=== PATIENT | male | born 1950 | race Caucasian/White ===

== ENCOUNTER 2022-09-23 14:56 | Outpatient (REF) | payer OTHER, MEDICAID, SELFPAY ==
--- NOTE | ~2022-09-23 | XR_ITS ---
EXAMINATION: XR KNEE AP STANDING XR KNEE, RIGHT CLINICAL INFORMATION: Pain in unspecified knee COMPARISON: June 29, 2022. TECHNIQUE: AP bilateral standing view of the knees was obtained. 2 additional views of the right knee. FINDINGS: The patient is status post bilateral total knee arthroplasties. Partially imaged metallic fixation plate and screws at the mid diaphysis of the left tibia. There is no evidence of hardware fracture or loosening. No bony fracture or dislocation is seen. No lytic or sclerotic bony lesion is identified. No definite effusion identified as such. Vascular calcification. XR/XR knee standing BI IMPRESSION: No acute finding.
--- NOTE | ~2022-09-23 | XR_ITS ---
EXAMINATION: XR KNEE AP STANDING XR KNEE, RIGHT CLINICAL INFORMATION: Pain in unspecified knee COMPARISON: June 29, 2022. TECHNIQUE: AP bilateral standing view of the knees was obtained. 2 additional views of the right knee. FINDINGS: The patient is status post bilateral total knee arthroplasties. Partially imaged metallic fixation plate and screws at the mid diaphysis of the left tibia. There is no evidence of hardware fracture or loosening. No bony fracture or dislocation is seen. No lytic or sclerotic bony lesion is identified. No definite effusion identified as such. Vascular calcification. XR/XR knee RT 2V IMPRESSION: No acute finding.
== END 2022-09-23 14:57 | disposition home or self-care (01) ==
LOC: HO.HOSX 14:56
PROVIDERS: Visit Provider Orthopaedic Surgery
DX: T84.84XA Pain due to internal orthopedic prosthetic devices, implants and grafts, initial encounter (principal); Z96.653 Presence of artificial knee joint, bilateral
CPT/HCPCS: 73560; 73565; 99202

== ENCOUNTER → 2022-10-08 10:47 | Outpatient (REF) | payer OTHER, MEDICAID, SELFPAY ==
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
== END ==
LOC: HO.NUCMED 10:47
PROVIDERS: PCP Internal Medicine; Visit Provider Orthopaedic Surgery
DX: Z96.653 Presence of artificial knee joint, bilateral (principal)
CPT/HCPCS: 78315; A9503

== ENCOUNTER → 2022-10-29 10:44 | Outpatient (BNVA) | payer OTHER, MEDICAID, SELFPAY | PROVIDERS: PCP Internal Medicine; Visit Provider Orthopaedic Surgery | DX: T84.84XA Pain due to internal orthopedic prosthetic devices, implants and grafts, initial encounter (principal); M25.561 Pain in right knee; Z96.653 Presence of artificial knee joint, bilateral | CPT/HCPCS: 99212 ==

== ENCOUNTER → 2022-12-13 08:43 | Outpatient (BNVA) | payer OTHER, MEDICAID, SELFPAY | PROVIDERS: PCP Internal Medicine; Visit Provider Anesthesiology | DX: G40.909 Epilepsy, unspecified, not intractable, without status epilepticus (principal); G89.4 Chronic pain syndrome; Z96.653 Presence of artificial knee joint, bilateral | CPT/HCPCS: 99202 ==

== ENCOUNTER 2023-05-10 06:00 | Outpatient (REF) | payer OTHER, MEDICAID, SELFPAY ==
--- NOTE | ~2023-05-10 | FL_ITS ---
EXAMINATION: XR FLUOROSCOPY WITH IMAGES CLINICAL INFORMATION: Chronic pain syndrome. Right knee injection. COMPARISON: None available. TECHNIQUE: Fluoroscopy Supervised By: Dr. Rohith Ramirez. Fluoroscopy Time: 0.1 minutes. Cumulative Dose: 4.36 mGy. DAP: 0.0757 mGy-m2. Images: 4. FINDINGS: There is a right knee replacement. Images demonstrate needle placement for geniculate nerve block. FL/FL guidance in treatment room IMPRESSION: Fluoroscopy guidance for pain management procedure.
== END 2023-05-10 06:01 | disposition home or self-care (01) ==
LOC: CF 06:00
PROVIDERS: Visit Provider Anesthesiology
DX: G89.4 Chronic pain syndrome (principal); G40.909 Epilepsy, unspecified, not intractable, without status epilepticus; Z96.653 Presence of artificial knee joint, bilateral
CPT/HCPCS: J0690

== ENCOUNTER 2023-05-10 09:52 | Outpatient (AMB) | payer OTHER, MEDICAID, SELFPAY ==
[2023-05-10 09:57] VITALS: BP 98/60; PULSE 68; RESP 14; O2SAT 97; BMI 26.3
--- NOTE | 2023-05-10 09:57 | MHC.OFFVIS ---
Intake Vital Signs 05/10/23 09:57 05/10/23 11:58 Height 5 ft 7 in 5 ft 7 in Weight 168 lb 168 lb BMI 26.3 26.3 BP 98/60 118/62 Blood Pressure Location Rt brachial Rt brachial Position Sitting Sitting Respiration 14 14 Pulse 68 56 Pulse Source Pulse Oximeter Pulse Oximeter Pulse Oximetry (%) 97 96 Oxygen Delivery Method Room Air Room Air Comment pre-op Post-op Intake Visit Reasons: R DX GNB/LOCAL Allergies No Known Allergies Allergy (Verified 05/10/23 09:57) PFSH Medical History Hx of aneurysm Surgical History History of bilateral knee replacement Social History Patient Tobacco Use Status: Never used Tobacco Current occupational status: retired 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 His bone scan was unremarkable with no evidence of loosening or infection. He continues to have pain and difficulty with ambulation, and uses an assistive cane. He was examined by Dr. Israel orthopedic surgeon and there were no indications for patient to have a surgery no loosening of the joint and no signs of the infection. I offered this patient to treat his pain right diagnostic genicular nerve block. I will see him for the appointment after the genicular nerve block on the right will be completed. (2) Chronic pain syndrome: Code(s): G89.4 - Chronic pain syndrome (3) Seizure disorder: Code(s): G40.909 - Epilepsy, unspecified, not intractable, without status epilepticus Plan Right diagnostic genicular nerve block. 20 minutes before the procedure the patient recieved 2 g of cefasoline IV Informed consent was explained to the patient. All questions were explained and answered. The patient was taken inside the operating room. The patient was positioned supine on operating table with her right leg elevated on a gel bin. Time-out was performed delineating correct site, side, the nature of the procedure, patient's allergy, preoperative antibiotic if needed. All operating room staff was participating in OR time-out procedure. C-arm was brought over the operating field and picture of the left knee was demonstrated on the screen. Anterolateral and anteromedial surfaces of the knee as well as lower leg and the lower thigh were prepped with chloroprep and draped with utility towels. The point of interest were delineated for: FOR: superior lateral genicular nerve (branch of lateral femoral cutaneous nerve) as the connection of the metaphysis of theright femur with corresponding diaphysis on the lateral silhouette of the femur distal bone, For superior medial genicular nerve (suprapatellar saphenous nerve) the point of interest was delineated is the connection of metaphysis of right femur with corresponding diaphysis on the medial silhouette on the femoral distal bone. For inferior medial genicular nerve (infrapatellar saphenous nerve) the point of interest was delineated as connection of metaphysis of the proximal tibia on the medial side with corresponding diaphysis of the same bone. The projections of the points of interest on anterior surface of the right knee was injected with small amount of lidocaine 2% 1-to 2 ml. After that to needles 22 gauge 3-1/2 inch long were driven to were the point of interest in tunnel vision fashion. When the needle gently contacted the bones the C arm view was turned lateral , care was taken to superimpose condyles of the knee. With condyles superimpsed the needles were adjusted the way the tips of the needle positioned at the middle of the shaft of the bone. After that injection of ropivacaine o.5% 1 to 1.5 mls was performed at each needle location. the needles were removed and bandaids were applied. the patient tolerated the procedure very well. Orders: Orders FL guidance in treatment room Today G89.4 - Chronic pain syndrome, Z96.653 - Presence of artificial knee joint, bilateral Coding Level of Care Code Procedure Only Diagnoses Status post bilateral knee replacements Z96.653 Chronic pain syndrome G89.4 Seizure disorder G40.901
[2023-05-10 11:58] VITALS: BP 118/62; PULSE 56; RESP 14; O2SAT 96; BMI 26.3
== END 2023-05-10 11:23 | disposition home or self-care (01) ==
PROVIDERS: PCP Internal Medicine; Visit Provider Anesthesiology
DX: M25.561 Pain in right knee (principal); Z96.653 Presence of artificial knee joint, bilateral; G89.4 Chronic pain syndrome; G40.909 Epilepsy, unspecified, not intractable, without status epilepticus
CPT/HCPCS: 64454

== ENCOUNTER 2023-05-12 09:43 | Outpatient (AMB) | payer OTHER, MEDICAID, SELFPAY ==
--- NOTE | 2023-05-12 09:47 | A.OFFVIS_ITS ---
Intake Vital Signs 05/12/23 09:58 Height 5 ft 7 in Weight 162 lb BMI 25.4 BP 138/74 Blood Pressure Location Lt brachial Position Sitting Respiration 18 Pulse 65 Pulse Source Pulse Oximeter Pulse Oximetry (%) 98 Oxygen Delivery Method Room Air Intake Visit Reasons: R CELENA VALLESB/LOCAL 04/12/23 Intake Note: patient comes in for post-op appointment. Allergies No Known Allergies Allergy (Verified 05/12/23 10:00) HPI HPI Comments History of Present Illness Details Kieran is back in my office after the injection of the right genicular nerves on 04/12/2023. He reported before the procedure his pain was 7/10. Immediately after the procedure pain went down to 6/10. It remains so until 3 hours after the procedure when he started to feel pain reduction initially 5/10 and 4 hours 3/10 at 05:00 hours toe out of 10 and it 6 hours 0/10 he currently experiences no pain in the knee for 2 days after the procedure. He reports excellent mobility ability to perform things in his household he forgot he was capable of doing. We discussed possibility of treatment of his pain with neuromodulation versus radiofrequency ablation. The patient is very negative about any implantable devices. He wants to go for radiofrequency ablation. He can be scheduled for radiofrequency ablation however we need to make sure that his pain returns before with schedule this procedure. I will schedule him for cooled RFA genicular nerves right knee, he will have a chance to cancel the case if his pain remains negligent at the time of the procedure. Prior: History of - complains on severe pain tenderness on palpation and swelling on the lateral side of the right knee.? He reported that he had total knee replacement long time ago at that knee.? He reported that the swelling and pain started recently in that area.? Before that the pain did not bother him.? Reports that he cannot sleep normally cannot do activities of daily living but he can take care of it himself and he can not function normally.? He is retired individual.? He is self mobile.? He reports that pain is worse in the evening and this severe in the morning.? He reports that pain is aggravated after prolonged walking or physical activities.? He reports short range of motion in the right knee.? He had x-ray and the bone scan performed in [facility] and results of the x-rays dictated as below. His past medical history significant for seizure disorder and high blood pressure. His past surgical history significant for total knee replacement bilateral neck surgery and back surgery. 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 Review of Systems Const All systems reviewed & are unremarkable except as noted in HPI and below Physical Exam Vital Signs: Last Vital Signs Pulse 65 05/12/23 09:58 Resp 18 05/12/23 09:58 BP 138/74 05/12/23 09:58 Pulse Ox 98 05/12/23 09:58 Oxygen Delivery Method Room Air 05/12/23 09:58 BMI result Body Mass Index 25.4 Const General: no acute distress and alert Orientation/consciousness: patient oriented x3 Resp Effort & Inspection: normal respiratory effort, able to speak in complete sentences, normal respiratory pattern, no audible wheezes, no cough and respiratory effort not decreased Cardio Jugular venous distension: no JVD GI Inspection: Yes normal to inspection Neuro General: patient oriented x3 Extrem Other: Right Knee: Full passive ROM, active range of motion is limited on the right to 70 degrees due to pain Well-healed incision No effusion TTP over the undersurface of lateral patella. Assessment & Plan Assessment & Plan (1) Status post bilateral knee replacements: Code(s): Z96.653 - Presence of artificial knee joint, bilateral Plan: This is a 72 year old man with a Hx of bilateral TKA's ~15-18 years ago, and several months of ongoing right knee pain & swelling. His bone scan was unremarkable with no evidence of loosening or infection. He continues to have pain and difficulty with ambulation, and uses an assistive cane. He was examined by Dr. Israel orthopedic surgeon and there were no indications for patient to have a surgery no loosening of the joint and no signs of the infection. Genicular nerve block resulted in excellent pain relief. He still enjoys pain-free right knee. However the pain will come back. He has negative about neuromodulation. He is very eager to go for radiofrequency ablation although the limitations of the procedure were explained to the patient. Possibility of pain in knee returning 1 year after the procedure is high. The chances of pain relief after 2nd procedure would be only 50/ 50 at the best. I would not mind to try. I will schedule him for RFA of the right genicular nerves accordingly. (2) Chronic pain syndrome: Code(s): G89.4 - Chronic pain syndrome (3) Seizure disorder: Code(s): G40.909 - Epilepsy, unspecified, not intractable, without status epilepticus (4) Right knee pain: Code(s): M25.561 - Pain in right knee Coding Level of Care Code Est Pt Level 4 (36689) Diagnoses Status post bilateral knee replacements Z96.653 Chronic pain syndrome G89.4 Seizure disorder G40.909 Right knee pain M25.561
[2023-05-12 09:58] VITALS: BP 138/74; PULSE 65; RESP 18; O2SAT 98; BMI 25.4
== END 2023-05-12 10:27 | disposition home or self-care (01) ==
PROVIDERS: PCP Internal Medicine; Visit Provider Anesthesiology
DX: M25.561 Pain in right knee (principal); G89.4 Chronic pain syndrome; Z96.653 Presence of artificial knee joint, bilateral; G40.909 Epilepsy, unspecified, not intractable, without status epilepticus
CPT/HCPCS: 99214

== ENCOUNTER → 2023-05-12 09:43 | Outpatient (BNVA) | payer OTHER, MEDICAID, SELFPAY | PROVIDERS: PCP Internal Medicine; Visit Provider Anesthesiology | DX: G89.4 Chronic pain syndrome (principal); M25.561 Pain in right knee; G40.909 Epilepsy, unspecified, not intractable, without status epilepticus; Z96.653 Presence of artificial knee joint, bilateral | CPT/HCPCS: 99212 ==

== ENCOUNTER 2023-06-10 07:38 | Day surgery (SDC) | payer OTHER, MEDICAID, SELFPAY ==
[2023-06-07 14:51] VITALS: BMI 25.4
--- NOTE | 2023-06-09 10:46 | HO.ANESPROP2 ---
HPI - Anesthesia Eval Consult details Narrative: 73yo M for Right Genicular Nerve Cool RFA Eliquis for ?aneurysm PMFSH Active Problems Active Problems: All Active Problems (Updated 06/09/23 @ 10:15 by Nilda Oro RN) Right knee pain (Acute) Seizure disorder (Acute) Chronic pain syndrome (Acute) Status post bilateral knee replacements (Acute) Past Medical History Medical History Palpitations Seizure Memory loss Hx of aneurysm Surgical History Surgical History History of surgery on lower extremity History of back surgery History of bilateral knee replacement Social History Social History Patient Tobacco Use Status: Never used Tobacco Current occupational status: retired 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 Meds Allergies Allergy/AdvReac Type Severity Reaction Status Date / Time No Known Allergies Allergy Verified 05/12/23 10:00 Home Medications Medication Instructions Recorded Confirmed Last Taken Type apixaban 5 mg tablet (Eliquis) 5 mg PO BID 09/23/22 06/10/23 06/06/23 History lisinopril 20 mg tablet 20 mg PO DAILY 09/23/22 06/10/23 Unknown History memantine 10 mg tablet 10 mg PO DAILY 09/23/22 06/10/23 Unknown History oxycodone-acetaminophen 10 mg-325 1 tab PO DAILY 09/23/22 06/10/23 Unknown History mg tablet levetiracetam 500 mg tablet 500 mg PO BID 06/10/23 06/10/23 06/09/23 History Exam Exam Date and Time: June 09, 2023 1046 Height,Weight and Vital Signs: Height 5 ft 7 in Weight 73.482 kg Assessment and Plan Assessment Anesthesia Assessment: Chart Reviewed
--- NOTE | ~2023-06-10 | FL_ITS ---
EXAMINATION: XR FLUOROSCOPY WITH IMAGES CLINICAL INFORMATION: Right genicular RFA. COMPARISON: Knee x-ray June 2022 TECHNIQUE: Fluoroscopy Supervised By: Dr. Rohith Ramirez. Fluoroscopy Time: 0.2 minutes. Cumulative Dose: 1.60 mGy. DAP: 0.436 Gycm2. Images: 6. FINDINGS: Images demonstrate needle placement adjacent to the medial and lateral lateral distal femoral and medial proximal tibia shafts for geniculate nerve block. There is a right 3 component knee replacement. FL/FL guidance in OR IMPRESSION: Fluoroscopy guidance for geniculate nerve block.
--- NOTE | 2023-06-10 08:03 | MHC.SHP ---
Pre-Procedural Eval Section A Date of Service: 06/10/23 The patient is an INPATIENT: No Changes since office visit: Yes Patient answered all questions The History & Physical has been completed within 30 days and I have reviewed it.: No Section B Chief Complaint: Presence artificial knee joint, bilateral,knee ethan Details of Present Illness: as above. Relevant Family History (Specify if Yes): No Relevant Social History: None Present Medications: see Short Stay Collaborative assessment Medical History: No relevant PMH History of Previous Operations: Relevant previous surgery/procedure and date(s) (TKR b/l) Allergies: Allergies Allergy/AdvReac Type Severity Reaction Status Date / Time No Known Allergies Allergy Verified 05/12/23 10:00 Review of Systems Sugical H&P ROS: Negative: Cardiovascular, Respiratory, Neurological, Psychiatric, Hem-Onc, Allergic/Immunologic, Gastrointestinal, Genitourinary, Musculoskeletal, Integumentary, Endocrine and Eyes/Ears/Nose/Throat and Yes, Specify: Constitution Exam Surgical H&P Exam: Normal: HEENT, Normal: Heart, Normal: Lungs, Normal: Extremities, Normal: Abdomen, Normal: Skin and Normal: Neurological Plan Diagnosis/Plan: Unchanged I have reviewed the history and physical and performed a pertinent physical examination on my patient. No changes have occurred unless specified. Time Spent With Patient Time: Total time managing care of this patient today __5__ minutes.
--- NOTE | 2023-06-10 08:10 | W.PM.OPN ---
Operative Note Operative Note Date of Service: 06/10/23 Narrative: RIGHT KNEE GENICULAR NERVES COOLED RFA. Informed consent was obtained , the patient was brought to the OR and positioned supine on ORT. 2 G OF CEFASOLIN WAS GIVEN IV TO THE PATIENT 30 minutes before the procedure. Time-out was performed delineating correct site, side, the nature of the procedure, patient's allergy, preoperative antibiotic if needed. All operating room staff was participating in OR time-out procedure. Anterolateral and anteromedial surfaces of the knee, as well as anterolateral and anteromedial surfaces of the lower thigh and upper pedro were prepped with chloroprep and draped with sterile utility towels. Sterilely draped C-arm was brought over the operating field and picture of the left knee was demonstrated on the screen. I was wearing a sterile surgical gown, sterile gloves and a face mask. The point of interest were delineated for: superior lateral genicular nerve as the confluence of the metaphysis of the femur with corresponding diaphysis on the lateral silhouette of the femur distal bone, For superior medial genicular nerve (suprapatellar saphenous nerve) the point of interest was delineated as the confluence of the silhouette of the metaphysis of the femur with corresponding diaphysis on the medial silhouette on the femoral distal bone. For inferior medial genicular nerve (Infrapatellar saphenous nerve) the point of interest was delineated as the confluence of metaphysis of the proximal tibia on the medial side with corresponding diaphysis of the same bone. The projections of the points of interest on anterior surface of the right knee was injected with small amount of mixture of lidocaine 1% and ropivacaine 2% 1-to 2 ml. After that 3 cooled radiofrequency canulas 50 mm long were driven to the point of interest in tunnel vision fashion. When needles gently contacted the bones the position of the C-arm was switched to the lateral view, care was taken to superimpose the the femoral condyles of the knee one over the other. The position of the canulas were adjusted to assure that the tip of the canulas are located at the mid shaft of each of the above described bones. After that small amount of mixture of the same local anesthetic mixture as above and a trace amount of kenalog was injected into each canula position. total amount of local anesthetics was 4.5 cc. The cooled RFA machine was connected to the canulas in usual fashion and energy applied with temperature of the canulas of 60 degrees C, for the 2.5 minutes. When energy application was completed the canulas were removed and sterile dressing was applied. Patient went to PACU where he recovered uneventfully.
[2023-06-10 08:12] VITALS: BP 138/73; PULSE 55; RESP 16; TEMP 36.3; O2SAT 95
--- NOTE | 2023-06-10 08:20 | ECG_ITS ---
Test Reason : preop, ? heart block Blood Pressure : / mmHG Vent. Rate : 050 BPM Atrial Rate : 050 BPM P-R Int : 178 ms QRS Dur : 138 ms QT Int : 474 ms P-R-T Axes : 084 079 087 degrees QTc Int : 432 ms Sinus bradycardia Left bundle branch block Abnormal ECG No previous ECGs available Referred By: Alexandrea Angeles Electronically Signed By:CHANTELL RIBERA
[2023-06-10] MEDS: Lactated Ringers 1,000 ML 100 ML IVCONT (08:27)
--- NOTE | 2023-06-10 08:40 | HO.ANESPROP2 ---
[facility] Active Problems Active Problems: All Active Problems (Updated 06/10/23 @ 07:55 by Shirley Martinez RN) Right knee pain (Acute) Seizure disorder (Acute) Chronic pain syndrome (Acute) Status post bilateral knee replacements (Acute) Past Medical History Medical History Palpitations Seizure Memory loss Hx of aneurysm Family History Family history of problems with anesthesia: No Surgical History Surgical History History of surgery on lower extremity History of back surgery History of bilateral knee replacement History of Problems with Anesthesia: No Social History Social History Patient Tobacco Use Status: Never used Tobacco Use of substances other than those prescribed or required for medical reasons: No Are you DNR?: Yes Advance Directives: No Advance Directives Information Provided: Yes Current occupational status: retired 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 [employer] Meds Allergies Allergy/AdvReac Type Severity Reaction Status Date / Time No Known Allergies Allergy Verified 05/12/23 10:00 Active Medications: Current Medications Lactated Ringer's (Lr) 1,000 mls @ 100 mls/hr IVCONT .Q10H NELSON Last Admin: 06/10/23 08:27 Dose: 100 mls/hr Cefazolin Sodium/Dextrose (Ancef) 2 gm in 50 mls @ 100 mls/hr IV ONCE ONE Stop: 06/10/23 08:41 Home Medications Medication Instructions Recorded Confirmed Last Taken Type apixaban 5 mg tablet (Eliquis) 5 mg PO BID 09/23/22 06/10/23 06/06/23 History lisinopril 20 mg tablet 20 mg PO DAILY 09/23/22 06/10/23 Unknown History memantine 10 mg tablet 10 mg PO DAILY 09/23/22 06/10/23 Unknown History oxycodone-acetaminophen 10 mg-325 1 tab PO DAILY 09/23/22 06/10/23 Unknown History mg tablet levetiracetam 500 mg tablet 500 mg PO BID 06/10/23 06/10/23 06/09/23 History Exam Exam Date and Time: June 10, 2023 0840 Height,Weight and Vital Signs: Height 5 ft 7 in Weight 73.482 kg Last Vital Signs Temp 97.3 F 06/10/23 08:12 Pulse 55 06/10/23 08:12 Resp 16 06/10/23 08:12 BP 138/73 06/10/23 08:12 Pulse Ox 95 06/10/23 08:12 O2 Del Method Room Air 06/10/23 08:12 Airway Mallampati Class: I TM Dist: >3cm Neck ROM: Full Heart: RRR Lungs: CTA Assessment and Plan Assessment Anesthesia Assessment: Anesthesia Plan Discussed Final Anesthetic Review Family History of Problems with Anesthesia: No History of Problems with Anesthesia: No NPO: Yes ASA Class: III Final Preanesthetic Review: Meds/Allgs Chart Reviewed, Consent Obtained/Reviewed and Anes Risks/Benef Reviewed Patient Risk: Low Procedure Risk: Low Anesthetic Plan Anesthetic Plan: MAC: Disposition: Standard PACU
--- NOTE | 2023-06-10 09:25 | P.CONAN_ITS ---
[facility] Active Problems Active Problems: All Active Problems (Updated 06/10/23 @ 07:55 by Shirley Martinez RN) Right knee pain (Acute) Seizure disorder (Acute) Chronic pain syndrome (Acute) Status post bilateral knee replacements (Acute) Past Medical History Medical History Palpitations Seizure Memory loss Hx of aneurysm Family History Family history of problems with anesthesia: No Surgical History Surgical History History of surgery on lower extremity History of back surgery History of bilateral knee replacement History of Problems with Anesthesia: No Social History Social History Patient Tobacco Use Status: Never used Tobacco Use of substances other than those prescribed or required for medical reasons: No Are you DNR?: Yes Advance Directives: No Advance Directives Information Provided: Yes Current occupational status: retired 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 Meds Allergies Allergy/AdvReac Type Severity Reaction Status Date / Time No Known Allergies Allergy Verified 05/12/23 10:00 Active Medications: Current Medications Fentanyl (Fentanyl Citrate/Pf 100 Mcg/2 Ml Vial) 25 mcg IVPUSH Q5M PRN; Protocol PRN Reason: Pain, Moderate(Pain Scale 4-6) Lactated Ringer's (Lr) 1,000 mls @ 100 mls/hr IVCONT .Q10H NELSON Last Admin: 06/10/23 08:27 Dose: 100 mls/hr Home Medications Medication Instructions Recorded Confirmed Last Taken Type apixaban 5 mg tablet (Eliquis) 5 mg PO BID 09/23/22 06/10/23 06/06/23 History lisinopril 20 mg tablet 20 mg PO DAILY 09/23/22 06/10/23 Unknown History memantine 10 mg tablet 10 mg PO DAILY 09/23/22 06/10/23 Unknown History oxycodone-acetaminophen 10 mg-325 1 tab PO DAILY 09/23/22 06/10/23 Unknown History mg tablet levetiracetam 500 mg tablet 500 mg PO BID 06/10/23 06/10/23 06/09/23 History Exam Exam Date and Time: June 10, 2023924 Height,Weight and Vital Signs: Height 5 ft 7 in Weight 73.482 kg Last Vital Signs Temp 97.3 F 06/10/23 08:12 Pulse 55 06/10/23 08:12 Resp 16 06/10/23 08:12 BP 138/73 06/10/23 08:12 Pulse Ox 95 06/10/23 08:12 O2 Del Method Room Air 06/10/23 08:12 Airway Mallampati Class: I TM Dist: >3cm Neck ROM: Full Denture: Lower Heart: RRR Lungs: CTA Assessment and Plan Assessment Anesthesia Assessment: Anesthesia Plan Discussed and Chart Reviewed Final Anesthetic Review Family History of Problems with Anesthesia: No History of Problems with Anesthesia: No NPO: Yes ASA Class: III Final Preanesthetic Review: Meds/Allgs Chart Reviewed, Consent Obtained/Reviewed, Anes Risks/Benef Reviewed and DNR Form (If Appl.) Anesthetic Plan Anesthetic Plan: MAC: Disposition: Standard PACU
[2023-06-10 09:49] VITALS: BP 111/64; PULSE 56; RESP 16; TEMP 36.6; O2SAT 94
--- NOTE | 2023-06-10 09:53 | PM.OP ---
Brief Operative Note Date of Service: 06/10/23 Pre-op diagnosis: right knee pain, s/p right knee TKR Post-op diagnosis: same Procedure: Cooled RFA genicular nerves right knee on the right Surgeon: Rohith Ramirez MD Anesthesia: MAC Was an Foiling Machine Adjuster used for this Procedure?: No Estimated blood loss (mL): 1 Condition: stable Disposition: PACU
[2023-06-10 10:04] VITALS: BP 132/82; PULSE 58; RESP 20; TEMP 36.7; O2SAT 99
--- NOTE | 2023-06-10 13:27 | HO.POSTANES ---
Post Anesthesia Evaluation Post Anesthesia Evaluation Date of Service: 06/10/23 Vital Signs: Vital Signs Temp Pulse Resp BP Pulse Ox O2 Del Method 06/10/23 10:04 98.1 F 58 20 132/82 99 Room Air 06/10/23 09:49 97.9 F 56 16 111/64 94 Room Air 06/10/23 08:12 97.3 F 55 16 138/73 95 Room Air Anesthesia: Monitored Mental Status: Awake Pain Control: Satisfactory Nausea/Vomiting: None Hydration: Adequate Anesthesia-Related Issues: No Anes. Related Issues
== END 2023-06-10 10:52 | disposition home or self-care (01) ==
PROVIDERS: PCP Internal Medicine; Visit Provider Anesthesiology
PROC: (CPT 64624; principal; 2023-06-10 09:00)
DX: M25.561 Pain in right knee (principal); G89.4 Chronic pain syndrome; Z96.653 Presence of artificial knee joint, bilateral; G40.909 Epilepsy, unspecified, not intractable, without status epilepticus; I10 Essential (primary) hypertension; Z98.890 Other specified postprocedural states; Z66 Do not resuscitate
CPT/HCPCS: 64624; 93005; J0690; J2250; J2795; J3010; J3301

== ENCOUNTER → 2023-06-10 07:38 | Outpatient (BNV) | payer OTHER, SELFPAY | PROVIDERS: PCP Internal Medicine; Visit Provider Anesthesiology | DX: M25.561 Pain in right knee (principal); Z96.653 Presence of artificial knee joint, bilateral | CPT/HCPCS: 64624 ==